=== PATIENT | female | born 1965 | race Caucasian/White ===

== ENCOUNTER 2017-12-03 13:50 | Emergency (ER) | END 2017-12-03 14:16 | disposition home or self-care (01) ==

== ENCOUNTER 2018-01-07 10:18 | Emergency (ER) | END 2018-01-07 13:20 | disposition home or self-care (01) ==

== ENCOUNTER 2018-12-03 17:37 | Emergency (ER) | payer OTHER ==
[~2018-12-03] VITALS: Ht 154.9 cm; Wt 61.2 kg
[~2018-12-03 17:37] MED LIST: ACET500C5 PO; D-ME473S2 PO; GUAI-637 PO; IBUP-1542 PO; NITR-58 PO; PHEN-537 PO; SODI126M NASAL
[2018-12-03 17:39] VITALS: Ht 154.9 cm; Wt 61.2 kg
[2018-12-03] MEDS ORDERED: IBUPROFEN 600 MG TAB PO ONE (18:30)
[2018-12-03] MEDS ORDERED: IBUP-1561 PO (19:32)
--- NOTE | 2018-12-04 05:24 | ERD ---
ER Documentation Chief Complaint Chief Complaint c/o left knee pain, "for a long time", exacerbated by walking HPI This is a 52-year-old female history of hypertension presents to the ED co mplaining of intermittent left knee pain times 6 months. Patient states pain is worse with walking. Pain is localized to her right medial knee. She is to stop and take any pain medications for this. She denies any recent injury or fall. Denies any numbness, tingling or focal weakness. No fevers, chills or any other symptoms. No other injuries. ROS All systems reviewed and are negative except as per history of present illness. Medications Home Meds Active Scripts Ibuprofen* (Motrin*) 400 Mg Tab, 400 MG PO Q6H PRN for PAIN AND OR ELEVATED TEMP, #30 TAB Prov:LACEY CHENEY PA-C 12/03/18 Dextromethorphan Hb-Promethazine Hcl* (Promethazine DM* Syrup) 473 Ml Syrup, 10 ML PO Q6 PRN for COUGH, #120 ML Prov:LINCOLN SMITH MD 01/07/18 Ibuprofen* (Motrin*) 600 Mg Tab, 600 MG PO Q6H PRN for PAIN AND OR ELEVATED TEMP, #20 TAB Prov:LINCOLN SMITH MD 01/07/18 Sodium Chloride (Saline Nasal Mist) 126 Ml Mist, 2 SPRAY NASAL Q2H PRN for NASAL CONGESTION, #1 BOTTLE Prov:LYN KING NP 12/03/17 Guaifenesin* (Robitussin*) 100 Mg/5 Ml Syrup, 200 MG PO Q4H PRN for COUGH, #120 ML Prov:LYN KING NP 12/03/17 Acetaminophen* (Tylophen*) 500 Mg Capsule, 1 CAP PO Q6H PRN for PAIN AND OR ELEVATED TEMP, #20 CAP Prov:LYN KING NP 12/03/17 Phenazopyridine Hcl* (Pyridium*) 100 Mg Tab, 100 MG PO TID PRN for URINARY PAIN, #6 TAB Prov:LYN KING NP 02/12/16 Nitrofurantoin Monohyd Macrocr* (Macrobid*) 100 Mg Capsr, 100 MG PO BID for 7 Days, CAP Prov:LYN KING NP 02/12/16 Allergies Allergies: Coded Allergies: No Known Allergy (Unverified , 02/12/16) PMhx/Soc Hx Alcohol Use: No Hx Substance Use: No Hx Tobacco Use: No Smoking Status: Never smoker FmHx Family History: No diabetes Physical Exam Vitals Vital Signs Date Temp Pulse Resp B/P (MAP) Pulse Ox O2 O2 Flow FiO2 Time Delivery Rate 12/03/18 97.7 82 20 151/83 97 17:39 (105) Physical Exam Const: No acute distress Head: Atraumatic Eyes: Normal Conjunctiva ENT: Normal External Ears, Nose and Mouth. Neck: Full range of motion. No meningismus. Skin: No petechiae or rashes Back: No midline or flank tenderness Ext: + Moderate point tenderness to the left medial knee joint with overlying effusion. No warmth. Pain with flexion of the knee. DP, PT pulses 2+. Sensation and motor grossly intact. Cap refill less than 2 seconds. Right lower extremity normal. Neur: Awake and alert Psych: Normal Mood and Affect Results 24 hrs Current Medications Medications Dose Sig/Nato Start Time Status Last (Trade) Ordered Route PRN Stop Time Admin Dose Reason Admin Ibuprofen 600 mg ONCE ONCE 12/03/18 DC 12/03/18 (Motrin) PO 18:30 12/03/18 18:34 18:31 Procedures/MDM LABS & DIAGNOSTIC IMAGING: PROCEDURE: Left knee x-ray CLINICAL INDICATION: knee pain TECHNIQUE: Three views of the left knee were obtained. COMPARISON: None FINDINGS: Alignment/Structure No acute fracture or malalignment. Normal mineralization. Degenerative changes There is moderate medial compartment predominant, tricompartmental joint space narrowing with osteophytosis. Soft tissues and spaces The soft tissues are unremarkable. No joint effusion. IMPRESSION: No acute abnormalities. There is moderate medial compartment predominant, tricompartmental degenerative osteoarthritis of the knee. PROCEDURES: Splint Assessment: Neurovascularly intact post splint placement with good fit. ED COURSE: The patient was given ibuprofen The medication was well tolerated and the patient had market improvement in symptoms. The patient remained stable throughout ED course. MEDICAL DECISION MAKING: This is a 52-year-old female presents to the ED pinning of atraumatic left knee pain. She is afebrile here and vital signs are normal. She has no signs or symptoms concerning for septic arthritis. She is neurovascular intact distally and hemodynamic was stable. X-ray as above concerning for osteoarthritis, likely the source of her pain. Patient was placed in Donis wrap for comfort and given a cane. I discussed the results patient at bedside. Recommended she follow-up with her primary care provider for referral to an orthopedist or physical therapy. Strict return precautions discussed. R PRESCRIPTIONS: Ibuprofen. cane SPECIALIST FOLLOW UP RECOMMENDED: ortho Patient has been advised to follow up with primary care in 1-2 days. Blood Pressure Assessment: Patient's blood pressure was elevated (>120/80) but appears stable without evidence of hypertension emergency or urgency. The patient was counseled about the risks of hypertension and urged to pursue outpatient monitoring and therapy within a week with their primary care physician. Departure Diagnosis: Primary Impression: Osteoarthritis Osteoarthritis location: knee Osteoarthritis type: primary Laterality: left Qualified Codes: M17.12 - Unilateral primary osteoarthritis, left knee Condition: Stable Patient Instructions: Osteoarthritis: Exercise, Osteoarthritis: Managing Pain Additional Instructions: Paciente aconseja volver a Departamento de urgencias inmediatamente para sntomas nuevos o que empeoran . Paciente aconseja posteriores con el PCP en 1-2 henderson. Si el paciente no tiene ninguna de atencin primaria pueden seguir con [facility] [id number] [place] [address] o [facility] + [address] [id number] LACEY CHENEY PA-C Dec 04, 2018 05:24
== END 2018-12-03 19:52 | disposition home or self-care (01) ==
LOC: FTE 17:37
DX: M17.12 Unilateral primary osteoarthritis, left knee (principal); I10 Essential (primary) hypertension
CPT/HCPCS: 73562; Z7502; Z7610

== ENCOUNTER 2019-06-23 09:29 | Emergency (ER) | payer OTHER ==
[~2019-06-23] VITALS: Ht 152.4 cm; Wt 60.3 kg
[~2019-06-23 09:29] MED LIST changes: +ACET325T45 PO; -ACET500C5 PO; +ASPI-826 PO; +ATOR40TA68 PO; +CEPH500C PO; -D-ME473S2 PO; +FAMO-96 PO; -GUAI-637 PO; -IBUP-1542 PO; +LISI10TA2 PO; -NITR-58 PO; -PHEN-537 PO; -SODI126M NASAL
[2019-06-23 09:32] VITALS: BP 164/83; PULSE 73; RESP 17; Ht 152.4 cm; Wt 60.3 kg
== END 2019-06-23 11:34 | disposition home or self-care (01) ==
LOC: FTE 09:29
DX: J06.9 Acute upper respiratory infection, unspecified (principal); R07.9 Chest pain, unspecified; Z79.82 Long term (current) use of aspirin
CPT/HCPCS: 71045; 80048; 84484; 85025; 93005; Z7502